=== PATIENT | male | born 1950 | race Caucasian/White ===

== ENCOUNTER → 2018-11-06 12:57 | Outpatient (CLI) | payer SELFPAY ==
--- NOTE | 2018-11-06 13:06 | CT_ITS ---
STUDY: CT CHEST WITHOUT CONTRAST REASON FOR EXAM: Male, 68 years old. Calcium scoring examination. Radiological over read examination. RADIATION DOSAGE (If Supplied By Facility): CTDIvol = ( 12.19 ) mGy, DLP = ( 219.42 ) mGycm TECHNIQUE: Transaxial imaging was performed without the administration of intravenous contrast material. Individualized dose optimization techniques were used for this CT. COMPARISON: None. FINDINGS: The lungs are normal. There is no demonstrated pleural abnormality. There are calcifications of the coronary arteries. There are multiple small lymph nodes within the mediastinum, which are normal in size and morphology most compatible with reactive lymph hyperplasia. Normal hilar regions. Normal unenhanced pulmonary arteries. Normal aorta arch and descending thoracic aorta. Normal osseous structures. There is no demonstrated abnormality of the visualized upper abdomen. CT/Limited Chest CT w/CCTA IMPRESSION: Coronary artery calcification. Electronically Signed: Parviz King, at 9:02 EDT , Service support ,
[2018-11-06 13:21] VITALS: BP 125/73; PULSE 56; RESP 14; O2SAT 96; BMI 28.9
--- NOTE | 2018-11-06 18:41 | CA.SCORE ---
Calcium Scoring Date of Study:: 11/06/18 Coronary Calcium Scoring: Coronary calcium score: 149 Conclusion: Coronray calcium score: 149 Results: The patient underwent high-resolution CT imaging of the chest with attention to the coronary arteries for analysis of coronary calcification using coronary calcium quantification software. The patient was reported as tolerating the procedure well. The left main coronary calcium score was 0. The left anterior descending coronary calcium score was 92.6 The left circumflex coronary calcium score was 0 The right coronary calcium score was 56.0 The total coronary calcium score was reported as 149 Based upon pre-published reference tables a coronary calcium score of 149 would be considered indicative of moderate plaque burden and the high likelihood of moderate nonobstructive coronary artery disease. Impression: Coronary calcium score: 149 This note was generated using a voice recognition system and there may be incorrect words, spelling or punctuation that were not noted when reviewing the office note prior to saving.
== END ==
PROVIDERS: Family Provider Internal Medicine; PCP Internal Medicine; Referring Provider Internal Medicine; Visit Provider Internal Medicine
DX: E78.5 Hyperlipidemia, unspecified (principal)
CPT/HCPCS: 75571; 76380

== ENCOUNTER → 2019-09-15 09:55 | Outpatient (CLI) | payer MEDICARE, OTHER, SELFPAY ==
[2018-11-06 13:21] VITALS: BMI 28.9
--- NOTE | 2019-09-15 10:04 | US_ITS ---
STUDY: SCROTUM ULTRASOUND REASON FOR EXAM: Male, 69 years old. Lt scrotal pain TECHNIQUE: Ultrasound evaluation of the scrotum was performed with color Doppler and static yanez-scale imaging. COMPARISON: None. FINDINGS: RIGHT TESTICLE INTRATESTICULAR: There is a normal size of the right testicle. The right testicle measures 4.5 cm x 3 cm x 2.1 cm. There is a homogenous echotexture. There is normal arterial and normal venous vascularity. There is no demonstrated right testicular mass or cyst. EXTRATESTICULAR: The epididymis is normal in size. The epididymis head measures 0.6 cm. There is normal vascularity of the epididymis. There is a well-defined cystic structure within the epididymis, without internal echoes, consistent with an epididymal cyst. This measures 2 mm x 5 mm x 3 mm. There is a small hydrocele. There is no demonstrated varicocele. There is no demonstrated extratesticular mass or cyst. LEFT TESTICLE INTRATESTICULAR: There is a normal size of the left testicle. The left testicle measures 4.6 cm x 2.9 cm x 2.0 cm. There is a homogenous echotexture. There is normal arterial and normal venous vascularity. There is no demonstrated left testicular mass or cyst. EXTRATESTICULAR: The epididymis is normal in size. The epididymis head measures 1.1 cm. There is normal vascularity of the epididymis. There is a well-defined cystic structure within the epididymis, without internal echoes, consistent with an epididymal cyst. This measures 3 mm x 4 mm x 3 mm. There is a small hydrocele. There is no demonstrated varicocele. There is no demonstrated extratesticular mass or cyst. US/Testicular with Arterial Flow IMPRESSION: Small bilateral hydroceles. Small bilateral epididymal cysts. Electronically Signed: Parviz King, at 12:12 EST , Service support ,
== END ==
PROVIDERS: PCP Internal Medicine; Referring Provider Internal Medicine; Visit Provider Internal Medicine
DX: N43.3 Hydrocele, unspecified (principal); N50.3 Cyst of epididymis
CPT/HCPCS: 76870; 93976

== ENCOUNTER → 2019-09-23 11:14 | Outpatient (CLI) | payer MEDICARE, OTHER, SELFPAY ==
[2018-11-06 13:21] VITALS: BMI 28.9
--- NOTE | 2019-09-23 11:21 | RAD_ITS ---
STUDY: X-RAY - LUMBAR SPINE REASON FOR EXAM: Male, 69 years old. LBP X 10DAYS, NO TRAUMA TECHNIQUE: 5 view(s) of the lumbar spine were obtained including oblique views. COMPARISON: None FINDINGS: Normal lumbar lordosis. There is no substantial scoliosis. There is a normal alignment of the vertebrae. Normal vertebral bodies and endplates. Mild degree of disc space narrowing at the L5-S1 level. SI joint arthritis. There is a 5.4 mm rounded calcification adjacent to the transverse processes of the L4 vertebrae on the left side. This may represent a ureteral calculus. Mild atherosclerotic calcification of the infrarenal abdominal aorta. RAD/L/S Spine Min 4 Views IMPRESSION: Degenerative changes of the spine, as detailed above. Findings suggestive a 5.4 mm calculus in the midportion of the left ureter. Electronically Signed: Parviz King, at 12:22 EST , Service support ,
== END ==
PROVIDERS: PCP Internal Medicine; Referring Provider Internal Medicine; Visit Provider Internal Medicine
DX: M54.5 Low back pain (principal)
CPT/HCPCS: 72110

== ENCOUNTER → 2019-09-26 11:50 | Outpatient (CLI) | payer MEDICARE, OTHER, SELFPAY ==
[2018-11-06 13:21] VITALS: BMI 28.9
--- NOTE | 2019-09-26 12:07 | CT_ITS ---
STUDY: CT ABDOMEN AND PELVIS WITHOUT CONTRAST REASON FOR EXAM: Male, 69 years old. KIDNEY STONE. LEFT SIDED ABD PAIN. RADIATION DOSAGE (If Supplied By Facility): CTDIvol = ( 10.57 ) mGy, DLP = ( 543.78 ) mGycm TECHNIQUE: Transaxial images were obtained from the dome of the diaphragm to the symphysis pubis without oral contrast, and without intravenous contrast. Sagittal and coronal images were reconstructed. Individualized dose optimization techniques were used for this CT. COMPARISON: None. FINDINGS: The visualized lung bases are unremarkable. The visualized portions of the heart are within normal limits. Normal liver. Normal gallbladder and extrahepatic biliary system. Normal spleen. Normal pancreas. Normal bilateral adrenal glands. Punctate nonobstructive calculus in the lower pole calyx of the right kidney. Left perinephric stranding. Mild to moderate degree of left hydronephrosis due to a 5.5 mm calculus in the proximal portion of the left ureter. There is a small hiatal hernia. Normal small intestine. There are scattered colonic diverticula consistent with diverticulosis. The appendix is visualized and appears normal. There is scattered atherosclerotic calcification of the abdominal aorta, without a demonstrated aneurysm. Normal inferior vena cava. Normal retroperitoneum. Normal urinary bladder. There are prostatic calcifications. Normal abdominal wall. Mild degree of disc space narrowing at the L5-S1 level. CT/Abdomen/Pelvis without Cont IMPRESSION: 5.5 mm calculus in the mid left ureter causing left hydronephrosis and hydroureter. Electronically Signed: Parviz King, at 12:29 EST , Service support ,
[2019-09-26 12:13] LABS: Absolute Lymphocyte Count 0.64 X10^3/uL (0.83-4.51); Basophil# 0.03 X10^3/uL; Basophil% 0.5 % (0-1); Eosinophil# 0.05 X10^3/uL; Eosinophils% 0.8 % (0-5); Hematocrit 43.4 % (40-54); Hemoglobin 14.6 g/dL (13.0-16.5); Lymphocyte # 0.64 X10^3/ul (4.0); Lymphocyte % 9.9 % (19-41); Mean Corp Hgb Conc 33.6 g/dL (32-36); Mean Corpuscular Hgb 30.4 pg (27.0-32.0); Mean Corpuscular Volume 90.4 fL (80-94); Mean Platelet Vol. 9.1 fl (6.2-12.0); Monocyte# 0.69 X10^3/uL; Monocyte% 10.7 % (0-10); NRBC Flagged by Analyzer 0 % (0-5); Neutrophil # 5.02 X10^3/uL (2.7-7.7); Neutrophil % 77.9 % (47-70); Platelet Count 187 K/mm3 (150-450); RBC Distribution Width CV 11.5 % (11.6-14.6); RBC Distribution Width SD 38.4 fl (35.1-43.9); White Blood Count 6.4 K/mm3 (4.4-11.0)
[2019-09-26 12:27] LABS: ALB/GLOB Ratio 1.3 RATIO (0.9-2.4); AST(SGOT) 20 U/L (15-37); Alanine Aminotransfer ALT/SGPT 31 U/L (16-61); Albumin, Serum 3.9 g/dL (3.2-5.0); Alkaline Phosphatase 76 U/L (45-117); Anion Gap 4 (5-15); BUN 10 mg/dL (7-18); BUN/Creat Ratio 10.8 RATIO (10-20); Calcium,Total 9.2 mg/dL (8.5-10.1); Chloride 106 mmol/L (98-107); Creatinine, Serum 0.93 mg/dL (0.70-1.30); EST Glomerular Filtration Rate 86 mL/min (>60); Est Glom Filt Rate - Afr Amer 105 mL/min (>60); Globulin 3.1 g/dL (2.2-4.2); Glucose 96 mg/dL (74-106); Potassium 3.9 mmol/L (3.5-5.1); Sodium Level 139 mmol/L (136-145)
== END ==
PROVIDERS: PCP Internal Medicine; Referring Provider Internal Medicine; Visit Provider Internal Medicine
DX: N13.2 Hydronephrosis with renal and ureteral calculous obstruction (principal)
CPT/HCPCS: 36415; 74176; 80053; 85025

== ENCOUNTER → 2019-09-29 14:37 | Outpatient (CLI) | payer MEDICARE, OTHER, SELFPAY ==
[2018-11-06 13:21] VITALS: BMI 28.9
--- NOTE | 2019-09-29 14:39 | RAD_ITS ---
STUDY: X-RAY - ABDOMEN/PELVIS REASON FOR EXAM: Male, 69 years old. Left sided kidney stones, abdominal pain as well. TECHNIQUE: Two AP supine views of the abdomen and pelvis. COMPARISON: CT abdomen and pelvis dated September 26, 2019 FINDINGS: Normal visualized lung bases. There is a moderate amount of colonic fecal material. There is no demonstrated free abdominal air. There remains a 5.8 mm stone in the mid left ureter region, near the interspace of the L3-4 level. Normal soft tissue structures. There are diffuse degenerative changes of the visualized lumbar spine. RAD/Abdomen Single View IMPRESSION: As above Electronically Signed: Gilson Sow DO at 16:20 EST Tel , Service support ,
== END ==
PROVIDERS: PCP Internal Medicine; Referring Provider Urology; Visit Provider Urology
DX: N20.1 Calculus of ureter (principal)
CPT/HCPCS: 74018

== ENCOUNTER 2019-10-03 10:05 | Day surgery (SDC) | payer MEDICARE, OTHER, SELFPAY ==
[2018-11-06 13:21] VITALS: BMI 28.9
--- NOTE | 2019-10-03 10:24 | RAD_ITS ---
STUDY: X-RAY - ABDOMEN/PELVIS REASON FOR EXAM: Male, 69 years old. PRE OP LEFT KIDNEY STONE TECHNIQUE: Single AP view of the abdomen / pelvis. COMPARISON: Comparison is made with prior examination dated September 29, 2019. FINDINGS: There is a moderate amount of colonic fecal material. A 5.8 mm rounded calcification is seen overlying the transverse processes of the L4 vertebrae on the left side. This is unchanged. Normal soft tissue structures. Normal visualized osseous structures. RAD/Abdomen Single View IMPRESSION: Stable 5.8 mm calcification overlying the transverse processes of the L4 vertebra on the left side. Electronically Signed: Parviz King, at 12:09 EST , Service support ,
[2019-10-03 10:50] VITALS: BP 133/80; PULSE 55; RESP 15; TEMP 36.2; O2SAT 98; BMI 28.8
[2019-10-03] MEDS: Lactated Ringers 1,000 ML 100 ML IV (11:00)
--- NOTE | 2019-10-03 13:00 | DCINST_ITS ---
Discharge Diet: Light diet - advance as tolerated Discharge Activity: Return to Normal Activity Call your doctor if you observe: Fever of 101 or Higher, Uncontrolled pain Suture Line Care: Avoid Pulling/Pushing, Avoid Pinching/Bending Instructions: Shock Wave Lithotripsy Allergies/Adverse Reactions: Allergies No Known Allergies Allergy (Verified 10/03/19 10:38) Medications to take at Discharge Aspirin [Aspir 81] 81 mg PO DAILY 10/01/19 Cholecalciferol (Vitamin D3) [Vitamin D3] 1,250 mcg PO DAILY 10/01/19 Daily Defense 480 mg PO DAILY 10/01/19 DiphenhydrAMINE [Benadryl] 25 mg PO QHS 10/01/19 Finasteride [Propecia] 1 mg PO DAILY 10/01/19 Rosuvastatin Calcium [Crestor] 40 mg PO QHS 10/01/19 Tadalafil [Cialis] 5 mg PO PRN PRN 10/01/19 Ciprofloxacin [Cipro] 500 mg PO BID #6 tab 10/03/19 Hydrocodone/Acetaminophen [[place] 5-325 Tablet] 1 each PO Q4H PRN PRN 5 Days #14 tablet 10/03/19 The following prescriptions were given: Ciprofloxacin [Cipro] 500 mg PO BID #6 tab Transmission Status: Pending to [facility] Hydrocodone/Acetaminophen [[place] 5-325 Tablet] 1 each PO Q4H PRN PRN 5 Days #14 tablet PRN Reason: Pain Score 1-10/10 Transmission Status: Received by [facility] Primary Care Physician: Chaparrita Cuellar MD [Primary Care Provider] - Test Results: Test results from this visit will be discussed in further detail at your follow- up appointment, if applicable. Please Follow Up With: Celestine Pulido MD When: please call to make an appointment.
[2019-10-03] MEDS: Cefazolin 2 GM in 0.9% Normal Saline 100 ML IV (13:01)
--- NOTE | 2019-10-03 14:04 | OP.PCM_ITS ---
Report of Operation Date of Procedure: 10/03/19 Pre-Operative Diagnosis: Mid left ureteral calculi 6 mm Post-Operative Diagnosis: The same Surgery/Procedure Performed:: Cystoscopy and left stent placement, left extracorporeal shockwave lithotripsy. Description of Surgical Findings:: 69-year-old male who had a stone in the mid left ureter about 6 mm in size he is not been able to pass the stone spontaneously today working to proceed with shoc kwave lithotripsy and a stent placement we talked about the options of management with the patient including ureteroscopy and laser and shockwave lithotripsy. He wished to have a noninvasive procedure. He also understands is possible the stone may not break and may require more than one procedure. Document the risks of the surgery including bleeding infection pain and discomfort failure for the stone to break and possibility of needing more than 1 surgery. 69-year-old male was taken back to the operating room after smooth induction of general anesthesia he was placed supine on the table, he was then placed in dorsolithotomy position. The penis and testicles are prepped and draped in usual sterile fashion, went into the bladder with a 21 [place] rigid cystourethroscope the entire length the urethra is normal the prostate was normal inside the bladder identified the left ureteral orifice I then advanced a wire up we followed it under fluoroscopy could see the wire go past the stone and the stone moved with a wire and then we place a stent over the wire it was a 6 Haitian by 26 cm stent left the string on it but cut it short. We then repositioned the patient on the lithotripter table we found the F2 focal point of the lithotripter machine and place a stone right on it we monitor the stone during entire treatment and a total of 4000 shockwaves were delivered to the stone at a rate of 90 shocks per minute up to 9 kV the maximum treatment available. At the end of the treatment there is some change in stone but still visible under x-ray next week was seen with a KUB and pole of the stent and see if he can pass a fragment appeared to partially break up but not a complete breakage hopefully enough to pass the fragments. Type of Anesthesia:: General Drains: stent left side - Admit VTE Documentation VTE Present on Admission: No VTE Mechan Device Prophylaxis: SCD's
[2019-10-03 14:10] VITALS: BP 133/80; BP 152/81; PULSE 55; RESP 16; TEMP 36.2; O2SAT 99
[2019-10-03 14:15] VITALS: BP 133/80; BP 147/81; PULSE 56; RESP 16; O2SAT 98
[2019-10-03 14:30] VITALS: BP 133/80; BP 164/89; PULSE 52; RESP 16; O2SAT 100
[2019-10-03 14:34] VITALS: BP 133/80; BP 152/87; PULSE 50; RESP 16; TEMP 36.2; O2SAT 99
[2019-10-03 15:09] VITALS: BP 133/80; BP 156/85; PULSE 52; RESP 16; TEMP 36.2; O2SAT 99
== END 2019-10-03 15:16 | disposition home or self-care (01) ==
LOC: SDC 10:06 → AC 10:21
PROVIDERS: PCP Internal Medicine; Referring Provider Urology; Visit Provider Urology
PROC: (CPT 50590; principal; 2019-10-03 11:50)
DX: N20.1 Calculus of ureter (principal); E78.00 Pure hypercholesterolemia, unspecified; Z79.82 Long term (current) use of aspirin
CPT/HCPCS: 00873; 50590; 52332; 74018; J7120; C1769; C2617; J2405

== ENCOUNTER → 2019-10-07 13:21 | Outpatient (CLI) | payer MEDICARE, OTHER, SELFPAY ==
[2019-10-03 10:50] VITALS: BMI 28.8
--- NOTE | 2019-10-07 13:26 | RAD_ITS ---
STUDY: X-RAY - ABDOMEN/PELVIS REASON FOR EXAM: Male, 69 years old. CALCULUS OF URETER TECHNIQUE: KUB COMPARISON: October 03, 2019. FINDINGS: Normal visualized lung bases. There is an unremarkable bowel gas pattern. There is no demonstrated free abdominal air. The visualized liver, spleen and kidneys are grossly normal in size and morphology. Ureterovesical stent is noted on the left. There is a tiny radiopaque density adjacent to the stent at the level of L3 which may be consistent with ureteral calculus. CT would be useful for further evaluation if clinically warranted Normal visualized osseous structures. RAD/Abdomen Single View IMPRESSION: Status post left ureterovesical stent placement.. Apparent coexisting ureteral calculus at the level of L3 Electronically Signed: Mike Neville MD at 23:10 EST , Service support ,
== END ==
PROVIDERS: PCP Internal Medicine; Referring Provider Urology; Visit Provider Urology
DX: N20.1 Calculus of ureter (principal)
CPT/HCPCS: 74018

== ENCOUNTER → 2019-11-01 | Outpatient (CLI) | payer MEDICARE, OTHER, SELFPAY ==
[2019-10-03 10:50] VITALS: BMI 28.8
--- NOTE | 2019-11-01 15:52 | RAD_ITS ---
STUDY: X-RAY - ABDOMEN/PELVIS REASON FOR EXAM: Male, 69 years old. left side flank pain TECHNIQUE: Single AP view of the abdomen / pelvis. COMPARISON: October 07, 2019 FINDINGS: Normal visualized lung bases. There is an unremarkable bowel gas pattern. Double-J ureteral stent has been removed from the left side. There is a 4 mm radiodensity in the left pelvis which may be new. This could represent a phlebolith or fecalith but the distal ureterolithiasis difficult to exclude. The visualized liver, spleen and kidneys are grossly normal in size and morphology. Normal soft tissue structures. Normal visualized osseous structures. RAD/Abdomen Single View IMPRESSION: Status post left ureteral stent removal. Questionable small phlebolith versus distal left ureteral left. Electronically Signed: Alan Gonzalez MD at 16:08 EDT , Service support ,
== END | disposition home or self-care (01) ==
LOC: LABSPEC 15:50
PROVIDERS: PCP Internal Medicine; Visit Provider Internal Medicine
DX: R10.9 Unspecified abdominal pain (principal); R11.0 Nausea; Z87.442 Personal history of urinary calculi
CPT/HCPCS: 74018

== ENCOUNTER → 2019-11-13 13:54 | Outpatient (CLI) | payer MEDICARE, OTHER, SELFPAY ==
--- NOTE | 2019-11-13 13:58 | CT_ITS ---
STUDY: CT ABDOMEN AND PELVIS WITHOUT CONTRAST REASON FOR EXAM: Male, 69 years old. Left kidney stone. Hx of lithotripsy x 2. RADIATION DOSAGE (If Supplied By Facility): CTDIvol = ( 13.55 ) mGy, DLP = ( 658.05 ) mGycm TECHNIQUE: Transaxial images were obtained from the dome of the diaphragm to the symphysis pubis without oral contrast, and without intravenous contrast. Sagittal and coronal images were reconstructed. Individualized dose optimization techniques were used for this CT. COMPARISON: Comparison is made with prior study dated September 26, 2019. FINDINGS: The visualized lung bases are unremarkable. The visualized portions of the heart are within normal limits. Normal liver. Normal gallbladder and extrahepatic biliary system. Normal spleen. Normal pancreas. Normal bilateral adrenal glands. Punctate nonobstructive calculus in the lower pole calyx of the right kidney. The previously seen proximal left ureteral calculus is is now seen in the distal left ureter just proximal to the ureterovesical junction. Minimal residual dilatation of the distal left ureter. No significant hydronephrosis seen at this time. Retroaortic left renal vein. There is a small hiatal hernia. Normal small intestine. There are scattered colonic diverticula consistent with diverticulosis. The appendix is visualized and appears normal. Normal abdominal aorta. Normal inferior vena cava. Normal retroperitoneum. Normal urinary bladder. There are prostatic calcifications. Normal abdominal wall. Mild degree of disc space narrowing at the L5-S1 level. CT/Abdomen/Pelvis without Cont IMPRESSION: 5.5 mm calculus in the distal portion of the left ureter just proximal to the left ureterovesical junction. This was previously seen in the proximal portion of the left ureter. No significant hydronephrosis is seen. Electronically Signed: Parviz King, at 14:51 EDT , Service support ,
== END ==
PROVIDERS: PCP Internal Medicine; Referring Provider Urology; Visit Provider Urology
DX: N20.1 Calculus of ureter (principal)
CPT/HCPCS: 74176

== ENCOUNTER 2019-11-18 09:51 | Day surgery (SDC) | payer MEDICARE, OTHER, SELFPAY ==
[2019-11-18 10:05] VITALS: BP 138/73; PULSE 63; RESP 15; TEMP 36.8; O2SAT 98; BMI 29.9
[2019-11-18] MEDS: Lactated Ringers 1,000 ML 100 ML IV (10:19)
[2019-11-18] MEDS: Cefazolin 2 GM in 0.9% Normal Saline 100 ML IV (11:58)
--- NOTE | 2019-11-18 12:06 | DCINST_ITS ---
Discharge Diet: Light diet - advance as tolerated Discharge Activity: Return to Normal Activity, May not drive while taking narcotic pain medications. Suture Line Care: Avoid Pulling/Pushing, Avoid Pinching/Bending Instructions: Treating Kidney Stones: Ureteroscopic Stone Removal Allergies/Adverse Reactions: Allergies No Known Allergies Allergy (Verified 11/18/19 09:58) Medications to take at Discharge Aspirin [Aspir 81] 81 mg PO DAILY 10/01/19 Cholecalciferol (Vitamin D3) [Vitamin D3] 1,250 mcg PO DAILY 10/01/19 Daily Defense 480 mg PO DAILY 10/01/19 DiphenhydrAMINE [Benadryl] 25 mg PO QHS 10/01/19 Finasteride [Propecia] 1 mg PO DAILY 10/01/19 Rosuvastatin Calcium [Crestor] 40 mg PO QHS 10/01/19 Tadalafil [Cialis] 5 mg PO PRN PRN 10/01/19 Ciprofloxacin [Cipro] 500 mg PO BID #6 tab 11/18/19 Hydrocodone/Acetaminophen [[place] 5-325 Tablet] 1 ea PO Q4H PRN PRN 5 Days #14 tab 11/18/19 The following prescriptions were given: Ciprofloxacin [Cipro] 500 mg PO BID #6 tab Transmission Status: Pending to [facility] Hydrocodone/Acetaminophen [[place] 5-325 Tablet] 1 ea PO Q4H PRN PRN 5 Days #14 tab PRN Reason: Pain Score 1-10/10 Transmission Status: Sent to [facility] Primary Care Physician: Chaparrita Cuellar MD [Primary Care Provider] - Test Results: Test results from this visit will be discussed in further detail at your follow- up appointment, if applicable. Please Follow Up With: Celestine Pulido MD When: please call to make an appointment.
--- NOTE | 2019-11-18 12:07 | PCM.HP.STD ---
Problem List (1) Left obstructing ureteral calculi Status: Acute History of Present Illness Date of Admission: 11/18/19 Chief Complaint: Obstructing ureteral calculi left The patient is a 69 year old male who underwent shockwave lithotripsy for stone in the ureter few weeks ago, comes back to the office and we did a virtual visit to review the situation KUB was done still has a stone in CAT scan follow-up and the stone is still obstructing in the distal ureter fairly large fragment that is failed to pass after prior shockwave lithotripsy. Patient understands we will have to go back to surgery and perform ureteroscopy and laser and stent to take care of the obstructing stone. Past Medical History Allergies No Known Allergies Allergy (Verified 11/18/19 09:58) Home Medications: Ambulatory Orders Medication Instructions Recorded Aspirin [Aspir 81] 81 mg PO DAILY 10/01/19 Cholecalciferol (Vitamin D3) 1,250 mcg PO DAILY 10/01/19 [Vitamin D3] Daily Defense 480 mg PO DAILY 10/01/19 DiphenhydrAMINE [Benadryl] 25 mg PO QHS 10/01/19 Finasteride [Propecia] 1 mg PO DAILY 10/01/19 Rosuvastatin Calcium [Crestor] 40 mg PO QHS 10/01/19 Tadalafil [Cialis] 5 mg PO PRN PRN 10/01/19 Ciprofloxacin [Cipro] 500 mg PO BID #6 tab 11/18/19 Hydrocodone/Acetaminophen [[place] 1 ea PO Q4H PRN PRN 5 Days #14 tab 11/18/19 5-325 Tablet] Surgical History: - - Shockwave lithotripsy Lives: Spouse/ Significant Other Smoking Status: Never smoker Tobacco Use: Non-smoker Review of Systems Constitutional: Denies: Chills, Fever, Weight Change HEENT: Denies: Head Aches, Sinus Congestion, Sinus Drainage Cardiovascular: Denies: Chest Pain, Palpitations Respiratory: Denies: Cough, Shortness of breath at rest, Sputum production Gastrointestinal: Reports: Abdominal Pain. Denies: Nausea, Vomiting Genitourinary: Denies: Dysuria Musculoskeletal: Denies: Joint Pain, Joint Tenderness Skin: Denies: Rash, Wounds Neurological: Denies: Numbness, Tingling, Focal weakness Psychiatric: Denies: Anxiety, Depression, Homicidal Ideations, Suicidal Ideations Hematologic/ Lymphatic: Denies: Easy Bruising, Easy Bleeding VTE Information - Inpt Only VTE Present on Admission: No VTE Mechan Device Prophylaxis: SCD's Patient Problems: Active and Suspected Problems Left obstructing ureteral calculi (Acute) - Physical Exam Vitals/I&O's: Vital Signs Temp Pulse Resp BP Pulse Ox 98.3 F 63 15 138/73 H 98 11/18/19 10:05 11/18/19 10:05 11/18/19 10:05 11/18/19 10:05 11/18/19 10:05 Oxygen Delivery Method Room Air Weight: 92.17 kg Body Mass Index (BMI) 29.9 General: Alert, Oriented x3, Cooperative HEENT: Atraumatic, PERRLA, EOMI, Normocephalic Neck: Supple, No JVD, Negative Carotid Bruits Lungs: Clear to auscultation, Normal air movement Cardiovascular: Regular rate, No murmurs Abdomen: Bowel Sounds Present, Soft, Non Tender Extremities: No edema, Capillary Refill Less than 3 Seconds Skin: No rashes, No breakdown Musculoskeletal: No Tenderness to Palpation of Joints or Extremities Neurological: Cranial nerves II-XII grossly intact Psych/Mental Status: Normal Affect, Appropriate Current Medications Hydrocodone Bitart/Acetaminophen ([place] 5mg-325mg) 1 - 2 tablet PO Q6H PRN PRN PRN Reason: Pain Score 1-5/10 Lactated Ringer's () 1,000 mls @ 100 mls/hr IV .Q10H IRMA Last Admin: 11/18/19 10:19 Dose: 100 mls/hr Documented by: Ondansetron HCl (Zofran) 4 mg IM X1 PRN PRN Reason: NAUSEA Assessment/Plan All Active Problems Left obstructing ureteral calculi (Acute) Plan to proceed with laser of left ureteral stone causing blockage and hydronephrosis on the left side is failed to pass spontaneously, second stage procedure prior procedure with shockwave lithotripsy a few weeks prior. Essential Procedure Criteria Procedure Essential: Yes Criteria Note: On 10/28/2019 the [place] Department of Health ([facility]) Public Order signed by [facility] Director Kirsten Garduno M.D., regarding the Management of Non-Essential Surgeries and Procedures for the purpose of preserving Personal Protective Equipment (PPE) and critical hospital capacity and resources within [place] went into effect as of 10/29/2019 at 5:00PM. According to the [facility] Public Order: This action will remain in full force and effect until the State of Emergency declared by the Governor no longer exists or the Director of the [facility] rescinds or modifies this Order.. This [facility] order stated all non-essential or elective surgeries and procedures that utilize PPE should be delayed unless there is undue risk to the current or future health of a patient. After reviewing the aforementioned [facility] Public Order and the patients clinical case, I have determined that the scheduled procedure meets the criteria to go forward. Risk to Patient if Procedure Delayed: Risk of rapidly worsening to severe symptoms - Damage to the kidney if failure to treat obstructing stone.
--- NOTE | 2019-11-18 12:38 | PCM.OPRPT ---
Problem List (1) Left obstructing ureteral calculi Status: Acute Report of Operation Date of Procedure: 11/18/19 Pre-Operative Diagnosis: Obstructing left ureteral calculus Post-Operative Diagnosis: Same Surgery/Procedure Performed:: Cystoscopy, left retrograde pyelogram interpretation fluoroscopic images, balloon dilation of the left ureter, left ureteroscopy laser of stone in the distal ureter, left stent placement. Description of Surgical Findings:: Patient presented to the hospital for treatment of a calculus 6 millimeters in size in the distal ureter with obstruction, prior to this he had ESWL for stone in the proximal ureter and this is 1 of the fragments from prior treatments. We discussed how the procedure is done what to expect afterwards he probably will need a stent. We discussed the discomfort that the stent would cause, burning with urination, frequency, urgency, pain in the kidney, blood in the urine. We also discussed the risk of the procedure including bleeding and infection and the risk of anesthesia. We discussed the very rare risk of injury or scar tissue development in the ureter after this procedure. We also discussed the possibility that the stone would not be able to be treated completely and he may need multiple procedures. After discussion with the patient in the preoperative area also I saw the patient in the office discussing the same outcomes the patient signed the consent form, and all the patient's questions were answered. The patient was taken back to the operating room after smooth induction of general anesthesia and the patient was placed supine on the table. We then repositioned the patient in dorsolithotomy position with the legs in stirrups. We made sure all the patient's pressure points were padded. The patient had SCDs on for DVT prophylaxis and was loaded with IV antibiotics prior to the procedure. Imaging was reviewed. I went into the bladder with a 21 [place]ian rigid cystoscopy ureteroscopy after gentle dilation of the urethra. The urethra findings were normal. The prostate findings were normal. Inside the bladder the trigone was inspected left and right faustin of the bladder and posterior and dome of the bladder was inspected and the main findings in the bladder was normal. I then cannulated the left ureter and used a wire to go up to the ureter then over the wire I performed balloon dilation of the distal ureter with a ureteral balloon dilator, the balloon dilator size was 12 [place]ian. I then left the wire in place and over the wire I went up with a ureteroscope. I was able to reach the stone successfully and then lasered the stone using a laser fiber and perform laser lithotripsy on the stone until the stone broke up into tiny fragments. After successful complete lasering of the stone and its fragments then I worked my way out of the ureter and over the wire I then loaded up a stent and advanced a stent up into the left kidney. A retrograde pyelogram was then performed looking at the contrast images to assist in placement of the stent next and confirmed the location of the kidney and the ureter I then pulled on the wire and the stent coiled in the kidney and bladder in good position. I then drained the bladder with the cystoscope the patient's anesthetic was reversed he will be given pain medicine antibiotics and instructions to call the office for an appointment to remove the stent. Patient's anesthetic is being reversed and is taken back to the PACU in stable condition. Type of Anesthesia:: General Drains: stent left side 6fr x 26 cm - Admit VTE Documentation VTE Present on Admission: No VTE Mechan Device Prophylaxis: SCD's
[2019-11-18 12:57] VITALS: BP 138/73; BP 140/75; PULSE 66; RESP 16; TEMP 36.1; O2SAT 93
[2019-11-18 13:00] VITALS: BP 138/73; BP 144/66; PULSE 69; RESP 16; O2SAT 93
[2019-11-18 13:15] VITALS: BP 138/73; BP 146/69; PULSE 63; RESP 16; O2SAT 96
[2019-11-18] MEDS: Ketorolac 15 MG/ML Vial IM (13:18)
[2019-11-18 13:21] VITALS: BP 138/73; BP 147/77; PULSE 64; RESP 16; TEMP 36.4; O2SAT 95
[2019-11-18 13:40] VITALS: BP 138/73
== END 2019-11-18 14:01 | disposition home or self-care (01) ==
LOC: SDC 09:52 → AC 09:52
PROVIDERS: PCP Internal Medicine; Referring Provider Urology; Visit Provider Urology
PROC: 0TJ98ZZ Inspection of Ureter, Via Natural or Artificial Opening Endoscopic (ICD-10-PCS; CPT 52352; principal; 2019-11-18 11:50)
DX: N20.1 Calculus of ureter (principal); E78.00 Pure hypercholesterolemia, unspecified; Z87.442 Personal history of urinary calculi; Z79.82 Long term (current) use of aspirin
CPT/HCPCS: 52356; 76000; J7120; C1769; C2617; J2405

== ENCOUNTER → 2021-12-22 | Outpatient (CLI) | payer SELFPAY ==
--- NOTE | 2021-12-22 13:29 | CT_ITS ---
STUDY: CARDIAC CALCIUM SCORING - CT CHEST- ADDENDUM REASON FOR EXAM: Assess pulmonary parenchyma and mediastinal structures. RADIATION DOSAGE (If Supplied By Facility): CTDIvol = ( 12.19 ) mGy, DLP = ( 243.79 ) mGycm Individualized dose optimization techniques were used for this CT. ? TECHNIQUE: Axial non-enhanced images were acquired through the heart for the sole purpose of measuring coronary artery calcium. A field of view limited from the base of the heart to the upper abdomen was reviewed to assess the lung parenchyma and soft tissues. COMPARISON: CARDIAC CALCIUM SCORING - CT CHEST- ADDENDUM dated November 06, 2018 FINDINGS: The parenchymal windows with limited field of view show no signs of an acute infiltrate or pulmonary mass. There are no effusions. The visualized segments of the primary bronchi are clear. Normal heart size. No pericardial effusion is present. LAD atherosclerotic calcifications are present. Mild calcifications of the aortic arch. No aneurysmal dilatation of the thoracic aorta. The mediastinal windows with limited [id number] show no signs of hilar or mediastinal adenopathy. There is no discrete chest wall mass. The visualized segments of the upper abdominal viscera are unremarkable. CT/Limited Chest CT w/CCTA IMPRESSION: 1. No acute process or pulmonary mass. Electronically Signed: Douglas Nunes MD at 15:22 EDT ,
[2021-12-22 13:38] VITALS: BP 132/65; PULSE 56; RESP 18; TEMP 37.1; O2SAT 98; BMI 28.9
--- NOTE | 2021-12-22 19:55 | CA.SCORE ---
Calcium Scoring Date of Study:: 12/22/21 Coronary Calcium Scoring: High-resolution Computed Tomographic imaging of the chest was performed on 12/22/2021 with particular attention paid to the coronary arteries. Images from the examination were analyzed for the presence and extent of coronary artery calcification , using coronary calcium quantification software. The patient tolerated the procedure well and there were no complications. The results of the coronary calcification analysis are provided below. Findings Coronary Artery Left Main (LM): 3.97 Left Anterior Descending (LAD): 221 Left Circumflex (LCX): 0 Right Coronary Artery (RCA): 140 Total Agatston Score: 364.97 Percentile Ranking: According to [facility] published reference tables between 50% and 75% of patients with the same gender and similar age had the same or lower scores. Calcium Scoring Interpretation: 0 No identifiable atherosclerotic plaque. Very low cardiovascular disease risk. <5% chance of presence coronary artery disease A Negative Examination 1-10 Minimal Plaque burden. Significant coronary artery disease very unlikely. 11-100 Mild plaque burden. Likely mild or minimal coronary atherosclerosis. 101-400 Moderate plaque burden Moderate non-obstructive coronary artery disease highly likely. Over 400 Extensive plaque burden. High likelihood of at least one significant coronary stenosis (>50% diameter) Calcium Score: 101 - 400 Moderate non-obstructive coronary artery disease highly like Conclusion: Continue cardiovascular risk factor patient and care as deemed appropriate. This note was generated using a voice recognition system and there may be incorrect words, spelling or punctuation that were not noted when reviewing the office note prior to saving.
== END | disposition home or self-care (01) ==
PROVIDERS: PCP Internal Medicine; Referring Provider Internal Medicine; Visit Provider Internal Medicine
DX: E78.5 Hyperlipidemia, unspecified (principal); I25.10 Atherosclerotic heart disease of native coronary artery without angina pectoris
CPT/HCPCS: 75571; 76380

== ENCOUNTER → 2022-06-21 | Outpatient (CLI) | payer MEDICARE, OTHER, SELFPAY ==
--- NOTE | 2022-06-21 16:38 | RAD_ITS ---
INDICATION: pt having pain in the ball of his left foot -- xray of L foot EXAMINATION/TECHNIQUE: X-RAY - LEFT XR Foot Min 3 Views 3 VIEWS COMPARISON: None. FINDINGS: SOFT TISSUES: No soft tissue swelling or gas. No radiopaque foreign body. BONES/JOINTS: There is normal bony alignment, however there is joint space narrowing endplate sclerosis and minimal osteophyte formation at the first MTP. No destructive bony process or fracture noted.. Normal alignment. . No sclerotic or destructive changes observed. RAD/Foot min 3 Views IMPRESSION: 1. First MTP degenerative changes with joint space narrowing and marginal osteophyte formation. 2. No fracture subluxation or destructive bony process. 3. No soft tissue abnormality noted, no radiopaque foreign bodies in the soft tissues Electronically Signed: James Mustafa MD at 17:10 EST ,
== END | disposition home or self-care (01) ==
PROVIDERS: PCP Internal Medicine; Referring Provider Internal Medicine; Visit Provider Internal Medicine
DX: M79.672 Pain in left foot (principal)
CPT/HCPCS: 73630

== ENCOUNTER → 2024-07-23 | Outpatient (CLI) | payer MEDICARE, OTHER, SELFPAY ==
--- NOTE | 2024-07-23 08:15 | MRI_ITS ---
INDICATION: headache EXAMINATION: MRI - MR Brain W/O Contrast TECHNIQUE: MRI examination of brain obtained with standard protocol including multiplanar multiecho imaging. Noncontrast imaging obtained. IV Contrast Dosage and Agent: None. COMPARISON: None. FINDINGS: HEMISPHERES, CEREBELLUM AND BRAINSTEM: 1. The cerebral parenchyma, ventricular system, subarachnoid spaces have normal configuration and density. There is a normal gyral pattern. There is normal yanez/white differentiation. No midline shift.. 2. The hemispheric white matter has normal appearance. 3. No intraparenchymal mass, hemorrhage, or acute territorial infarct. 4. The cerebellum, brainstem, basilar and suprasellar cisterns have normal appearance. No Chiari malformation. PITUITARY: Infundibulum and pituitary have normal configuration. Midline structures appear normal. CSF SPACES: Appropriate for age. No hydrocephalus. Basal cisterns are patent. VESSELS: 1. There are normal flow voids noted in the great vessels at the skull base ORBITS AND PARANASAL SINUSES: 1. Both globes, extraocular muscles, optic nerves and retrobulbar fat appear unremarkable. 2. Chronic mucosal thickening throughout the ethmoid complexes. BONY ELEMENTS: Bony elements of the cranial vault, facial skeleton and skull base have normal appearance. SCALP AND SOFT TISSUES: Normal appearance of the soft tissues of the scalp and the visualized face OTHER: None MRI/Brain without Contrast IMPRESSION: 1. No intracranial mass, hemorrhage, or acute territorial infarct. 2. Mild mucosal thickening in the ethmoid complexes Electronically Signed: James Mustafa MD at 21:25 EST ,
== END | disposition home or self-care (01) ==
LOC: MRI 07:58
PROVIDERS: PCP Internal Medicine; Referring Provider Internal Medicine; Visit Provider Internal Medicine
DX: R51.9 Headache, unspecified (principal)
CPT/HCPCS: 70551

== ENCOUNTER → 2025-06-19 | Outpatient (CLI) | payer MEDICARE, OTHER, SELFPAY ==
[2025-06-19 10:07] LABS: Hematocrit 44.8 % (40-54); Hemoglobin 15.2 g/dL (13.0-16.5); Immature Granulocytes Count 0.020 X10^3/uL (0.0-0.0); Mean Corp Hgb Conc 33.9 g/dL (32-36); Mean Corpuscular Volume 89.8 fL (80-94); Mean Platelet Vol. 9.7 fl (6.2-12.0); NRBC Flagged by Analyzer 0 % (0-5); Platelet Count 218 K/mm3 (150-450); RBC Distribution Width CV 12.0 % (11.6-14.6); RBC Distribution Width SD 39.4 fl (35.1-43.9); Red Blood Count 4.99 M/mm3 (4.6-6.2); White Blood Count 5.2 K/mm3 (4.4-11.0)
[2025-06-19 10:51] LABS: AST(SGOT) 25 U/L (<=37); Alanine Aminotransfer ALT/SGPT 21 U/L (<=46); Albumin, Serum 4.4 g/dL (3.4-4.8); Alkaline Phosphatase 87 U/L (40-129); Anion Gap 7 (5-15); BUN 19 mg/dL (4-19); BUN/Creat Ratio 23.1 RATIO (10-20); Calcium,Total 9.5 mg/dL (7.6-11.0); Carbon Dioxide 25.9 mmol/L (21.0-32.0); Chloride 106 mmol/L (98-108); Globulin 2.6 g/dL (2.2-4.2); Glucose 108 mg/dL (70-99); PSA,Total - Annual Screen 0.39 ng/mL (0.02-4.00); Potassium 4.5 mmol/L (3.3-5.1); Vitamin D,25 Hydroxy 51.2 ng/mL (30-100)
== END | disposition home or self-care (01) ==
LOC: CIMLAB 07:04
PROVIDERS: PCP Internal Medicine; Referring Provider Internal Medicine; Visit Provider Internal Medicine
DX: Z12.5 Encounter for screening for malignant neoplasm of prostate (principal); I25.10 Atherosclerotic heart disease of native coronary artery without angina pectoris; E55.9 Vitamin D deficiency, unspecified
CPT/HCPCS: 36415; 80053; 82306; 84153; 85025; G0103

== ENCOUNTER → 2025-07-16 | Outpatient (CLI) | payer MEDICARE, OTHER, SELFPAY | END | disposition home or self-care (01) | LOC: LABSPEC 10:05 | PROVIDERS: PCP Internal Medicine; Referring Provider Internal Medicine; Visit Provider Internal Medicine | DX: J02.9 Acute pharyngitis, unspecified (principal) | CPT/HCPCS: 87070 ==